=== PATIENT | female | born 1995 | race Caucasian/White ===

== ENCOUNTER → 2017-01-27 | Outpatient (CLI) | payer BC, OTHER ==
[~2017-01-27] MED LIST: BCPILLS PO
== END | disposition home or self-care (01) ==
LOC: C.RDSM 11:03
PROVIDERS: ATTEND Physical Medicine & Rehabilitation Sports Medicine
DX: M25.552 Pain in left hip (principal)

== ENCOUNTER → 2017-02-10 | Outpatient (CLI) | payer BC, OTHER | END | disposition home or self-care (01) | LOC: C.RDSM 10:12 | PROVIDERS: ATTEND Physical Medicine & Rehabilitation Sports Medicine | DX: M25.552 Pain in left hip (principal) ==